=== PATIENT | male | born 1950 | race American Indian/Alaskan Native ===

== ENCOUNTER 2016-03-31 21:42 | Emergency (ER) | payer BC ==
[2016-03-31 21:53] VITALS: BP 140/102; PULSE 95; TEMP 97.4; BMI 32.3
--- NOTE | 2016-03-31 23:51 | PDOC ---
History of Present Illness - General Chief Complaint: Eye Problem Stated Complaint: EYE PROBLEM Time Seen by Provider: 03/31/16 22:14 - History of Present Illness Initial Comments: CC: Eye problem HPI: 65 yo M presents to ED with complaints of R eye pain. Patient states he was working at his job when "something hit my eye" but he didn't think anything of it. Later in the evening his daughters noticed that his eye was red and told him to come to the ER. He denies pain to the eye but does state that it feels irritated and swollen. ROS: General: Denies weakness HEENT: R eye pain, redness, swelling. Denies change in vision. Cardiovascular: Denies chest pain, SOB. Lungs: Denies, cough,wheezing. Physical Exam: General: Well-appearing, appropriately dressed. No apparent distress. HEENT: Erythema and tearing to R eye. Corneal abrasion appreciated on slit lamp exam. Cardiovascular: RRR, S1, S2. Lungs: CTAB. Neuro: No focal deficits. Past History - Past Medical History Allergies/Adverse Reactions: Allergies Allergy/AdvReac Type Severity Reaction Status Date / Time No Known Allergies Allergy Verified 03/31/16 21:50 Home Medications: Ambulatory Orders Atorvastatin Ca [Lipitor] 20 mg PO HS 10/15/13 Insulin Glargine,Hum.rec.anlog [Lantus Solostar PEN -] 25 units SQ HS 10/15/13 Olmesartan Medoxomil [Benicar -] 20 mg PO DAILY 10/15/13 Sitagliptin Phos/Metformin HCl [Janumet 50-1,000 mg Tablet] 1 tab PO BID Nitrofurantoin Monohyd/M-Cryst [Macrobid -] 100 mg PO BID #14 capsule 11/23/13 Tamsulosin HCl [Flomax] 0.4 mg PO DAILY #7 capsule 11/23/13 Erythromycin 0.5% Eye Ointment [Erythromycin 0.5% Eye Ointment -] 1 applic OS TID #1 tube 03/31/16 Diabetes: Yes HTN: Yes Hypercholesterolemia: Yes Other medical history: glaucoma - Surgical History Abdominal Surgery: Yes - Immunization History Immunization Up to Date: Yes - Psycho/Social/Smoking Cessation Hx Anxiety: No Suicidal Ideation: No Smoking History: Never smoked Have you smoked in the past 12 months: No Number of Cigarettes Smoked Daily: 0 Information on smoking cessation initiated: No Hx Alcohol Use: No Drug/Substance Use Hx: No Substance Use Type: None Hx Substance Use Treatment: No *Physical Exam - Vital Signs Last Vital Signs Temp Pulse Resp BP Pulse Ox 97.4 F L 95 H 14 140/102 99 03/31/16 21:51 03/31/16 21:51 03/31/16 21:51 03/31/16 21:51 03/31/16 21:51 Medical Decision Making - Medical Decision Making 65 yo M presents to ED with redness and swelling to R eye. Slit lamp exam consistent with corneal abrasion. Advised patient to use medication as prescribed and follow up with safety analyst. Patient verbalized understanding and agrees to plan. *DC/Admit/Observation/Transfer Diagnosis at time of Disposition: Subconjunctival hemorrhage of left eye Corneal abrasion Qualifiers: Encounter type: initial encounter Laterality: left Qualified Code(s): S05.02XA - Injury of conjunctiva and corneal abrasion without foreign body, left eye, initial encounter - Discharge Dispostion Disposition: HOME Condition at time of disposition: Good Admit: No - Prescriptions Prescriptions: Erythromycin 0.5% Eye Ointment [Erythromycin 0.5% Eye Ointment -] 1 applic OS TID #1 tube - Referrals Referrals: Eladio Enriquez MD [Primary Care Provider] - Marline Jackson MD [Staff Physician] - - Patient Instructions Printed Discharge Instructions: DI for Corneal Abrasion, DI for Subconjunctival Hemorrhage Additional Instructions: Please apply eye ointment as prescribed. As discussed, please follow up with Dr. Urbina tomorrow. If you experience sudden change in vision, headache , fever, chills, nausea, vomiting, or any new or worsening symptoms, please return to the ER.
== END 2016-04-01 01:10 | disposition home or self-care (01) ==
LOC: JER 21:42
DX: S05.02XA Injury of conjunctiva and corneal abrasion without foreign body, left eye, initial encounter (principal); H11.32 Conjunctival hemorrhage, left eye; X58.XXXA Exposure to other specified factors, initial encounter; Y93.89 Activity, other specified; Y92.89 Other specified places as the place of occurrence of the external cause; Y99.0 Civilian activity done for income or pay
CPT/HCPCS: 99282-25

== ENCOUNTER 2016-09-21 17:35 | Emergency (ER) | payer BC ==
[2016-09-21 17:40] VITALS: BP 172/100; PULSE 80; TEMP 98; BMI 30.9
--- NOTE | 2016-09-21 18:00 | PDOC ---
History of Present Illness - General Chief Complaint: Laceration Stated Complaint: LACERATION Time Seen by Provider: 09/21/16 17:47 History Source: Patient Exam Limitations: No Limitations - History of Present Illness Initial Comments: 09/21/16 18:07 Patient is a 65-year-old male with past medical history of insulin-dependent diabetes, HLD, who presents to the emergency department today for a left pinky laceration. Patient states he was on a ladder when it slipped. He was approximately 2 rungs up from the floor. The ladder slid underneath him and he grabbed a hold of the ladder and it "cut part of his finger off." States he has a small bruise on his left knee. Denies hitting his head, losing consciousness. Patient denies blood thinner use. Denies head and neck back pain. He was able to achieve hemostasis with direct pressure prior to arriving to the emergency department. He does not know his tetanus status. Past History - Travel Traveled outside of the country in the last 30 days: No Close contact w/someone who was outside of country & ill: No - Past Medical History Allergies/Adverse Reactions: Allergies Allergy/AdvReac Type Severity Reaction Status Date / Time No Known Allergies Allergy Verified 09/21/16 17:36 Home Medications: Ambulatory Orders Atorvastatin Ca [Lipitor] 20 mg PO HS 10/15/13 Insulin Glargine,Hum.rec.anlog [Lantus Solostar PEN -] 25 units SQ HS 10/15/13 Olmesartan Medoxomil [Benicar -] 20 mg PO DAILY 10/15/13 Sitagliptin Phos/Metformin HCl [Janumet 50-1,000 mg Tablet] 1 tab PO BID Nitrofurantoin Monohyd/M-Cryst [Macrobid -] 100 mg PO BID #14 capsule 11/23/13 Tamsulosin HCl [Flomax] 0.4 mg PO DAILY #7 capsule 11/23/13 Erythromycin 0.5% Eye Ointment [Erythromycin 0.5% Eye Ointment -] 1 applic OS TID #1 tube 03/31/16 Cephalexin Monohydrate [Keflex -] 500 mg PO Q8H #21 capsule 09/21/16 Oxycodone HCl/Acetaminophen [Percocet 5-325 mg Tablet] 1 tab PO Q6H #10 tablet MDD 4 09/21/16 Diabetes: Yes HTN: Yes Hypercholesterolemia: Yes - Surgical History Abdominal Surgery: Yes (remove cyst on pancreas) - Immunization History Immunization Up to Date: Yes - Psycho/Social/Smoking Cessation Hx Anxiety: No Suicidal Ideation: No Smoking History: Never smoked Have you smoked in the past 12 months: No Number of Cigarettes Smoked Daily: 0 Information on smoking cessation initiated: No Hx Alcohol Use: No Drug/Substance Use Hx: No Substance Use Type: None Hx Substance Use Treatment: No Review of Systems - Review of Systems Able to Perform ROS?: Yes Is the patient limited Green[place]ic proficient: No Constitutional: No: Chills, Fever, Malaise, Weakness Integumentary: Yes: Bruising (L knee), Other (laceration of L pinky, ). No: Erythema, Pruritus Neurological: No: Numbness, Paresthesia, Weakness, Unsteady Gait All Other Systems: Reviewed and Negative *Physical Exam - Vital Signs Last Vital Signs Temp Pulse Resp BP Pulse Ox 98.0 F 80 16 172/100 100 09/21/16 17:37 09/21/16 17:37 09/21/16 17:37 09/21/16 17:37 09/21/16 17:37 - Physical Exam General Appearance: Yes: Nourished, Appropriately Dressed, Mild Distress ( holding L hand (right hand dominant), breathing easily AAOx3) HEENT: positive: Other (Normocephalic, atraumatic head. ) Extremity: positive: Normal Capillary Refill, Normal Range of Motion, Tender ( ttp over laceration site), Other (Avulsion laceration of the L palmar 5th finger. oozing blood. radial pulses 2+ b/l neurovasulcarly intact. strenghth 5/ 5 b/l) Neurologic: positive: banking representative II-XII NML intact, Fully Oriented, Alert, Normal Mood/ Affect, Normal Response, Motor Strength 5/5 Medical Decision Making - Medical Decision Making 09/21/16 18:13 Patient is a 65-year-old male with past medical history of insulin-dependent diabetes, HLD, who presents to the emergency department today for a left pinky avulsion laceration. The wound was copiously washed with normal saline and Betadine. There is no skin to suture back together as the ladder completely avulsed the pad of his 5th left finger off. There is no evidence of bone through the laceration. We will obtain x-ray at this time to rule out tuft fracture. Will have patient soak his hand in water with Betadine before x-ray. Tetanus to be updated today. Reevaluate 09/28/16 18:45 Evidence of chan fracture or fracture in the left hand. We will dress the laceration at this time with Surgicel as there is nothing to suture together. Will discharge patient home at this time on prophylactic antibiotics as he is a insulin-dependent diabetic. He is to follow-up with his primary care doctor within the week. Patient understands all discharge instructions and all questions were answered at this time. *DC/Admit/Observation/Transfer Diagnosis at time of Disposition: Avulsion, finger tip Qualifiers: Encounter type: initial encounter Qualified Code(s): S61.209A - Unspecified open wound of unspecified finger without damage to nail, initial encounter - Discharge Dispostion Disposition: HOME Condition at time of disposition: Good Admit: No - Prescriptions Prescriptions: Cephalexin Monohydrate [Keflex -] 500 mg PO Q8H #21 capsule Oxycodone HCl/Acetaminophen [Percocet 5-325 mg Tablet] 1 tab PO Q6H #10 tablet MDD 4 - Referrals Referrals: Eladio Enriquez MD [Primary Care Provider] - Call tomorrow - Patient Instructions Printed Discharge Instructions: DI for Avulsion Laceration (Not Requiring Sutures) Additional Instructions: You have an avulsion laceration of your pinky finger. There is no broken bones in the hand. Keep the surgicel on the site until it falls off. Change the dressing over the surgicel twice a day. Put bacitracin over the surgicel before placing a new dressing over the wound. You can buy telfa dressings over the counter. They are non-adhesive and will be good for your finger and knee. Keep the wound dry and clean until the wound heals. If the wound gets wet, pat it dry. You were prescribed antibiotics prophlactically. Take the entire dose even if you feel better. You also have percocet as needed for pain. Do not drive or operate heavy machinery after taking percocet as it may make you drowsy. Follow up with your primary care doctor within the week. Return to the ED if you develop fevers, chill, nausea, vomiting, worsening pain , or have any other changes in your symptoms.
[2016-09-21] MEDS ORDERED: DIPHTH,PERTUSS(ACELL),TET 0.5 ML DISP.SYRIN IM ONE (18:14)
[2016-09-21] MEDS ORDERED: BACITRACIN 15 GM TUBE TOPICAL OINTMENT ONE (18:31)
== END 2016-09-21 19:22 | disposition home or self-care (01) ==
LOC: JERFT 17:35
PROC: 3E0234Z Introduction of Serum, Toxoid and Vaccine into Muscle, Percutaneous Approach (ICD-10-PCS; principal; 2016-09-21)
DX: S61.317A Laceration without foreign body of left little finger with damage to nail, initial encounter (principal); S80.02XA Contusion of left knee, initial encounter; W11.XXXA Fall on and from ladder, initial encounter; Y93.89 Activity, other specified; Y92.89 Other specified places as the place of occurrence of the external cause
CPT/HCPCS: 73130-TC-LT; 90715; 99281-25

== ENCOUNTER 2018-11-26 16:58 | Emergency (ER) | payer BC | END 2018-11-26 23:41 | disposition home or self-care (01) | LOC: JER 16:58 ==